=== PATIENT | female | born 1955 | race Hispanic/Latino ===

== ENCOUNTER 2017-08-15 22:33 | Emergency (ER) | payer MEDICAID ==
[2017-08-15] MEDS ORDERED: ACETAMINOPHEN EXTRA STRENGTH 500 MG TABLET ONE (23:45)
[2017-08-15] MEDS ORDERED: CYCLOBENZAPRINE HCL 10 MG TABLET ONE (23:45)
== END 2017-08-16 01:08 | disposition home or self-care (01) ==
LOC: EDH 22:33
DX: M54.16 Radiculopathy, lumbar region (principal); Z85.3 Personal history of malignant neoplasm of breast; Z90.710 Acquired absence of both cervix and uterus
CPT/HCPCS: 73502

== ENCOUNTER 2018-10-29 23:38 | Emergency (ER) | payer MEDICAID ==
[2018-10-29 23:46] LABS: APPEARANCE,URINE Clear (CLEAR); BILIRUBIN,URINE Negative (NEGATIVE); COLOR,URINE Yellow (YELLOW); GLUCOSE, URINE (UA) Negative (NEGATIVE); KETONES,URINE Negative (NEGATIVE); LEUKOCYTE ESTERASE ,URINE Trace (NEGATIVE); NITRATE,URINE Negative (NEGATIVE); OCCULT BLOOD,URINE Negative (NEGATIVE); PH,URINE 7.5 (5.0-8.0); PROTEIN,URINE Negative (NEGATIVE); UROBILINOGEN,URINE 0.2 mg/dL (0.2-1.0)
[2018-10-30 00:01] LABS: BACTERIA,URINE None Seen /HPF (None Seen); RBC,URINE 0-1 /HPF (0-1); WBC,URINE 0-1 /HPF (0-1)
[2018-10-30] MEDS ORDERED: SUCRALFATE 1 GM TABLET ONE (01:25)
[2018-10-30] MEDS ORDERED: IBUPROFEN 400 MG TABLET ONE (01:25)
[2018-10-30] MEDS ORDERED: FAMOTIDINE/PF 20 MG/2 ML VIAL IV ONE (01:26)
== END 2018-10-30 06:07 | disposition home or self-care (01) ==
LOC: EDH 23:38
DX: R07.89 Other chest pain (principal); E07.9 Disorder of thyroid, unspecified; Z85.3 Personal history of malignant neoplasm of breast
CPT/HCPCS: 36415 ×2; 71045; 80053; 81001; 82550; 83690; 83874; 84484 ×3; 85025; 85610; 85730; 93005 ×3; 96374; 99285; J3490